=== PATIENT | male | born 1990 ===

== ENCOUNTER → 2022-02-02 11:42 | Outpatient (CLI) | payer OTHER, SELFPAY ==
--- NOTE | 2022-02-02 | DI.CT.S_ITS ---
PROCEDURE: CT SINUS SCREEN WO CON INDICATIONS: Chronic pansinusitis TECHNIQUE: Noncontrast 3.0 mm axial images acquired from the frontal sinuses to the mid-sella, with coronal and sagittal reformats. For radiation dose reduction, the following was used: automated exposure control, adjustment of mA and/or kV according to patient size. COMPARISON: None. FINDINGS: Image quality: Excellent. 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 Mild mucosal thickening in the floor of the right maxillary sinus. Minimal mucosal thickening in the left sphenoid sinus. Small right and moderate-sized left maxillary sinus mucous retention cysts. No air-fluid levels are identified. The ostiomeatal units are patent bilaterally. No osseous thickening, osseous remodeling or osseous erosive changes. Nasal septum is deviated to the left. No chito bullosa or paradoxical turbinates. Nasal septum is deviated to the left. IMPRESSION: 1. Mild right maxillary sinus and minimal left sphenoid sinus mucosal thickening. 2. No air-fluid levels. 3. Small right maxillary sinus and moderate-sized left maxillary sinus mucous retention cysts. 4. Congenital aplasia of the frontal sinuses. Dictated by: Courtney Sebastian MD, PhD on 02/02/2022 at 15:08 Approved by: Courtney Sebastian MD, PhD on 02/02/2022 at 15:11
== END ==
PROVIDERS: Referring Provider Otolaryngology; Visit Provider Otolaryngology
DX: J32.4 Chronic pansinusitis (principal); R09.81 Nasal congestion; J30.89 Other allergic rhinitis; J34.2 Deviated nasal septum; J34.1 Cyst and mucocele of nose and nasal sinus
CPT/HCPCS: 70486